=== PATIENT | male | born 1990 ===

== ENCOUNTER 2016-12-02 07:50 | Day surgery (SDC) | payer SELFPAY ==
[2016-11-27 09:00] VITALS: BMI 25.0
[2016-12-02] MEDS ORDERED: Lactated Ringer's 1,000 ML IV ONE (08:45)
[2016-12-02] MEDS ORDERED: Propofol 10 mg/ml Inj (20 ML) ONE (09:32)
[2016-12-02] MEDS ORDERED: Midazolam 2 MG/2 ML VIAL ONE (09:32)
[2016-12-02] MEDS ORDERED: Bupivacaine 0.5% Inj(30mL) ONE (11:06)
[2016-12-02] MEDS ORDERED: Lidocaine 1% Inj (20ml) ONE (11:06)
[2016-12-02] MEDS ORDERED: HYDROmorphone 0.5 mg/0.5 ml ISec IVP PRN (12:37)
[2016-12-02] MEDS ORDERED: Oxycodone/Acetaminophen 5/325 mg Tab PO PRN (12:56)
--- NOTE | 2016-12-02 12:59 | PCM.SURG1 ---
Surgeon's Initial Post Op Note - Surgeon's Notes Surgeon: Dr. Nava Torres Material Scheduler: Zenaida Nunez PA-C Type of Anesthesia: General Endo Anesthesia Administered By: Dr. Dent Pre-Operative Diagnosis: Left Knee Impingement,Lateral Discoid Meniscus, Synovitis,Maltracking of Patella Operative Findings: see operative note Post-Operative Diagnosis: same Operation Performed: Left Knee Arthroscopy,Medial Synovectomy of Patellofemoral and Lateral Compartments,Lateral Release,Partial Lateral Meniscectomy, Chondroplasty of Medial Femoral Condyle Specimen/Specimens Removed: none Estimated Blood Loss: EBL {In ML}: 1 Drains Used: No Drains Post-Op Condition: Good Date of Surgery/Procedure: 12/02/16 Time of Surgery/Procedure: 11:00
[2016-12-02] MEDS ORDERED: Ropivacaine 0.5% 30ML IV ONE (13:30)
[2016-12-02 14:35] VITALS: RESP 18
[2016-12-02] MEDS ORDERED: Oxycodone/Acetaminophen 5/325 mg Tab PO ONE (15:20)
--- NOTE | 2016-12-02 16:40 | OP ---
PROCEDURE DATE: 12/02/2016 DATE OF OPERATION: 12/02/2016 ATTENDING PHYSICIAN: Nava Torres MD CAPACITOR REPAIRER: Zenaida Nunez PA-C PREOPERATIVE DIAGNOSES: 1. Left knee lateral discoid meniscus. 2. Synovitis. 3. Maltracking of the patella. POSTOPERATIVE DIAGNOSES: 1. Left knee discoid meniscus. 2. Major synovitis of patellofemoral and lateral compartments. 3. 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 4. Lateral patellar tracking. PROCEDURES: 1. Left knee partial lateral meniscectomy. 2. Medial synovectomy of patellofemoral and lateral compartments. 3. Chondroplasty of medial femoral condyle. 4. Arthroscopic lateral release. ANESTHESIA TYPE: General. ESTIMATED BLOOD LOSS: 5 mL. SPECIMENS: None. DRAINS: ____ CLOSURE: Primary FLUIDS: See anesthesia sheet COMPLICATIONS: ____ INDICATIONS: After failing a course of non-operative therapy, the patient elected to undergo the abo ve procedure. In the office, the risks and possible complications of knee arthroscopy were discussed in detail with the patient. These risks include but are not limited to continued pain, lack of motio n, infection, vascular injury, DVT / PE, nerve injury including peroneal nerve dysfunction, reflex sy mpathetic dystrophy, compartment syndrome, unforeseen medical and/or anesthesia complications, limb l oss, and even . The patient expressed an understanding of the risks and possible benefits of th e procedure, and is also aware of the alternatives to surgery. An informed consent was obtained, and was checked immediately pre-op. PROCEDURE: The patient was correctly identified in the holding area and the left knee was marked with the [facility] initials. The patient was transported to the operating room and placed in the supine position, ge neral anesthesia was obtained, a pre-operative orthopaedic exam revealed effusion none, range of salvatore on 0-125, stable to varus and valgus stress. The lower extremity was prepped and draped in the standard fashion, and the thigh was placed in an ar throscopic leg srinivasan. A well-padded tourniquet was applied to the patient's thigh. Time out was co mpleted confirming the correct operative site. Esmarch was used to exsanguinate the leg and tournique t was inflated to 300 mmhg. A standard anterolateral viewing portals were made with a #11 blade after sub-dermal 1% Lidocaine with Epinephrine injection. The knee was distended with normal saline and epinephrine in a 1:1,000,000 mixture, at an initial pre ssure of 35mmHg. The arthroscope was inserted from the anterolateral portal and moved into the media l compartment. Next, the anteromedial working portal was made with spinal needle localization. The arthroscopic probe was inserted, and all compartments of the knee were sequentially visualized. FINDINGS: Arthroscopic examination of the knee revealed: 1. Discoid lateral meniscus. 2. Major synovitis of patellofemoral and lateral compartments. 3. Lateral maltracking of the patella. 4. 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 The anterior cruciate ligament and posterior cruciate ligament were intact. Partial lateral meniscectomy was performed with a combination of hand instruments and a 4.0 mm motori zed shaver. The meniscus was debrided to a smooth, stable border with an excursion of less than 5 mm. The motorized shaver was used to mechanically debride the loose, fibrillated and fragmented chondral edges of the medial femoral condyle to a stable border. Extreme care was taken to not disrupt the ad jacent chondral surface. The edges of injured chondral area were probed to ensure stability after the shaver was withdrawn from the knee. The motorized shaver was used to perform a synovectomy of the lateral and patellofemoral compartments . The hypertrophic synovium was resected with minimal bleeding. No synovial incarceration was noted after synovectomy when the knee was put through a full passive range of motion. The anterior fat pad and anterolateral synovium were debulked utilizing a radiofrequency device, whic h was introduced through the anterior medial working portal. The arthroscope was switched to the ant erior medial working portal to view the anterolateral portal, and the radiofrequency device was used to perform the lateral release taking care to identify and protect the superior lateral geniculate ar jess. The inflow was shut off and the lateral release area was checked for hemostasis. Small bleede rs were coagulated with the radiofrequency device. WASHOUT: The medial and lateral gutters were checked for loose bodies. At this point, the knee was t hen copiously irrigated utilizing the irrigation solution. Arthroscopic washout was performed with f ree flowing outflow through the cannula with the arthroscope removed. A total of 10 mL of 0.25% Marcaine was then injected into the knee, with infusion into each portal as well for post-operative analgesia. CLOSURE: Portal closure was then accomplished utilizing sutures, and sterile dressing was applied consisting o f Xeroform, 4 x 4's, sterile gauze, and two ABDs with a 6 inch rob wrap. In addition, an "Ice-Man" a utomated portable cooling system pad was applied to the knee, over top of the sterile gauze and under neath the Rob-wrap. This modality is medically necessary to maximize postoperative analgesia and to decrease the use of narcotic analgesics in the postoperative period. The sponge and needle count was correct at the end of the case, and all instruments were inspected and free of defects. Anesthesia was reversed and the patient was transferred to the recovery room in stable condition, hav ing tolerated the procedure well. The attending surgeon was scrubbed and present throughout the crit ical portions of the case, including all of the intra-articular arthroscopic procedures. Post operatively, the patient will be weight bearing as tolerated and will utilize my standard post a rthroscopy rehab protocol. The patient will be started on straight leg raising and quadriceps settin g exercises in the recovery room and will progress to prone hangs as well as prone knee flexion exerc ises using an active assisted construct. During this procedure, I was assisted by Zenaida Nunez PA-C, who assisted in positioning the patient on the operating room table as well as transferring the patient from the operating room tabl e to the recovery room stretcher. In addition, Zenaida Nunez PA-C, assisted me during the a ctual operative procedure by positioning the patient's extremity to allow for easier arthroscopic acc ess to all areas of the joint. The presence of Zenaida Nunez PA-C, as my operative assistan t was medically necessary to ensure the utmost safety of the patient in the pre, intra-, and post-ope rative periods. Nava Torres MD cc: [id number] TT: 12/02/2016 16:39:31 francine
[2016-12-02 17:04] VITALS: BP 132/68; PULSE 86; TEMP 97.9; O2SAT 98
== END 2016-12-02 17:10 | disposition home or self-care (01) ==
LOC: H.OPSURG 07:50
PROVIDERS: ATTEND Orthopaedic Surgery
DX: M23.362 Other meniscus derangements, other lateral meniscus, left knee (principal); M65.862 Other synovitis and tenosynovitis, left lower leg

== ENCOUNTER 2017-02-16 10:59 | Emergency (ER) | payer OTHER ==
[2017-02-16 11:07] VITALS: BP 129/80; PULSE 67
[2017-02-16 11:08] VITALS: BMI 24.1
[2017-02-16 11:15] VITALS: RESP 20; TEMP 98; O2SAT 100
--- NOTE | 2017-02-16 12:53 | ED PDOC ---
Lower Extremity Pain/Injury Time Seen by Provider: 02/16/17 12:25 Chief Complaint (Nursing): Lower Extremity Problem/Injury Chief Complaint (Provider): right knee History Per: Patient History/Exam Limitations: no limitations Additional Complaint(s): 26yo M in Ed for eval of left knee pain-stats that today 1 hr [employer] got up from befd and twisted knee and now with pain to knee made worse with walking but able to walk. pt states he has arthoscopy 3 months ago from [facility] but has never f.u nor attempted to make an appt. - Knee Description Of Injury: Twisted Knee: 1 - knee pain - Risk Factors DVT Risk Factors: Pos: None Past Medical History Reviewed: Historical Data, Nursing Documentation, Vital Signs Vital Signs: Last Vital Signs Temp 98.0 F 02/16/17 11:14 Pulse 67 02/16/17 11:14 Resp 20 02/16/17 11:14 BP 129/80 02/16/17 11:14 Pulse Ox 100 02/16/17 11:14 - Medical History PMH: No Chronic Diseases - Family History Family History: States: No Known Family Hx - Home Medications Home Medications: Ambulatory Orders Medication Instructions Recorded Naproxen [Naprosyn] 500 mg PO Q6 PRN 12/02/16 oxyCODONE/Acetaminophen [Percocet 1 mg PO Q4 PRN 12/02/16 5/325 mg Tab] Ibuprofen [Motrin] 400 mg PO Q6 #30 tab 02/16/17 - Allergies Allergies/Adverse Reactions: Allergies Allergy/AdvReac Type Severity Reaction Status Date / Time No Known Allergies Allergy Verified 12/02/16 08:51 Review of Systems ROS Statement: Except As Marked, All Systems Reviewed And Found Negative Musculoskeletal: Positive for: Leg Pain Physical Exam - Reviewed Nursing Documentation Reviewed: Yes Vital Signs Reviewed: Yes - Physical Exam Appears: Positive for: Well, Non-toxic, No Acute Distress Head Exam: Positive for: ATRAUMATIC, NORMAL INSPECTION, NORMOCEPHALIC Skin: Positive for: Normal Color, Warm, DRY Cardiovascular/Chest: Positive for: Regular Rate, Rhythm Respiratory: Positive for: CNT, Normal Breath Sounds Extremity: Positive for: Normal ROM. Negative for: Tenderness, Pedal Edema, Calf Tenderness, Deformity, Swelling Neurologic/Psych: Positive for: Alert, Oriented - ECG O2 Sat by Pulse Oximetry: 100 Medical Decision Making Medical Decision Making: pt is [facility] i ED will get knee immobilizer and pain control will has appt with MD Melissa 12:30pm on 02/20/17 Disposition - Clinical Impression Clinical Impression: Knee injury - Patient ED Disposition Is Patient to be Admitted: No Counseled Patient/Family Regarding: Studies Performed, Diagnosis, Need For Followup, Rx Given - Disposition Referrals: Nava Torres MD [Staff Provider] - Disposition: Routine/Home Disposition Time: 12:54 Condition: STABLE Prescriptions: Ibuprofen [Motrin] 400 mg PO Q6 #30 tab Instructions: Knee Sprain (ED)
== END 2017-02-16 13:30 | disposition home or self-care (01) ==
LOC: H.ER 10:59
DX: S89.92XA Unspecified injury of left lower leg, initial encounter (principal); X50.9XXA Other and unspecified overexertion or strenuous movements or postures, initial encounter; Y92.003 Bedroom of unspecified non-institutional (private) residence as the place of occurrence of the external cause

== ENCOUNTER 2017-02-28 05:28 | Observation (INO) | payer SELFPAY ==
[2017-02-28 05:52] VITALS: BMI 21.5
[2017-02-28] MEDS ORDERED: Sodium Chloride 0.9% 1,000 ML IV STA (05:57)
[2017-02-28 06:05] VITALS: O2SAT 100
--- NOTE | 2017-02-28 06:13 | ED PDOC ---
HPI: Abdomen Time Seen by Provider: 02/28/17 05:30 Chief Complaint (Nursing): Abdominal Pain Chief Complaint (Provider): Abdominal pain History Per: Patient History/Exam Limitations: no limitations Onset/Duration Of Symptoms: Hrs Outside of [place] travel?: No Current Symptoms Are (Timing): Still Present Location Of Pain/Discomfort: RLQ Quality Of Discomfort: Sharp, "Pain" Additional History Per: Patient Additional Complaint(s): The patient is a 26yo male, presents to the ED for evaluation of sharp, non- radiating right lower quadrant pain since 0430 this morning. Pt reports the pain is constant with waves and is associated with 1x episode of vomiting. Pt reports some nausea but denies any fever or chills. Pt offers no additional medical complaints. PCP: None provided Past Medical History Reviewed: Historical Data, Nursing Documentation, Vital Signs Vital Signs: Last Vital Signs Temp 97.4 F L 02/28/17 05:56 Pulse 71 02/28/17 05:56 Resp 16 02/28/17 05:56 BP 146/100 H 02/28/17 05:56 Pulse Ox 100 02/28/17 06:53 - Medical History PMH: No Chronic Diseases - Surgical History Other surgeries: left knee arthroscopic surgery - Family History Family History: States: Unknown Family Hx - Home Medications Home Medications: Ambulatory Orders Medication Instructions Recorded Naproxen [Naprosyn] 500 mg PO Q6 PRN 12/02/16 oxyCODONE/Acetaminophen [Percocet 1 mg PO Q4 PRN 12/02/16 5/325 mg Tab] Ibuprofen [Motrin] 400 mg PO Q6 #30 tab 02/16/17 - Allergies Allergies/Adverse Reactions: Allergies Allergy/AdvReac Type Severity Reaction Status Date / Time No Known Allergies Allergy Verified 02/28/17 05:55 Review of Systems ROS Statement: Except As Marked, All Systems Reviewed And Found Negative Constitutional: Negative for: Fever, Chills Gastrointestinal: Positive for: Nausea, Vomiting, Abdominal Pain Physical Exam - Reviewed Nursing Documentation Reviewed: Yes Vital Signs Reviewed: Yes - Physical Exam Appears: Positive for: Well, Non-toxic, Uncomfortable Head Exam: Positive for: ATRAUMATIC, NORMAL INSPECTION, NORMOCEPHALIC Skin: Positive for: Normal Color, Warm, DRY Eye Exam: Positive for: EOMI, Normal appearance, PERRL Neck: Positive for: Normal, Supple Cardiovascular/Chest: Positive for: Regular Rate, Rhythm Respiratory: Positive for: Normal Breath Sounds. Negative for: Respiratory Distress Gastrointestinal/Abdominal: Positive for: Soft, Tenderness (right lower quadrant ). Negative for: Mass, Guarding, Rebound Back: Positive for: Normal Inspection Extremity: Positive for: Normal ROM. Negative for: Deformity, Swelling Neurologic/Psych: Positive for: Alert, Oriented - Laboratory Results Result Diagrams: 02/28/17 06:26 02/28/17 06:26 - ECG O2 Sat by Pulse Oximetry: 100 (RA) Pulse Ox Interpretation: Normal Medical Decision Making Medical Decision Making: Time: Impression: Right lower quadrant pain Differential: Urethral stone with colic, appendicitis and other pathologies considered Plan: * CMP * CBC * IV Fluids * CT AP w/ IV Contrast * Morphine 4 mg IV * Zofran 4 mg IV * Toradol 30 mg IV * Time: 0700 Pt to be signed out to Dr. Fu pending CT, labs and final disposition. Scribe Attestation: Documented by Summer Moya acting as a scribe for Lyle Arriaga MD. Provider Attestation: All medical record entries made by the Scribe were at my direction and personally dictated by me. I have reviewed the chart and agree that the record accurately reflects my personal performance of the history, physical exam, medical decision making, and the department course for this patient. I have also personally directed, reviewed, and agree with the discharge instructions and disposition. Disposition - Clinical Impression Clinical Impression: Abdominal pain - Patient ED Disposition Is Patient to be Admitted: Transfer of Care Doctor Will See Patient In The: Office Counseled Patient/Family Regarding: Studies Performed, Diagnosis, Need For Followup - Disposition Disposition: Transfer of Care Disposition Time: 07:00 Condition: FAIR Patient Signed Over To: Dafne Fu Handoff Comments: Pending CT AP, labs and final dispo.
[2017-02-28 06:29] LABS: BASO % 0.2 % (0.0-2.0); EOS # 0.1 K/uL (0.0-0.7); EOS % 1.3 % (0.0-4.0); HEMATOCRIT 42.1 % (35.0-51.0); LYMPH # 1.9 K/uL (1.0-4.3); LYMPH % 34.5 % (20.0-40.0); MEAN CELL VOLUME 88.6 fl (80.0-94.0); MEAN CORPUSCULAR HEMOGLOBIN 29.3 pg (27.0-31.0); MEAN PLATELET VOLUME 9.8 fl (7.2-11.7); MONO # 0.5 K/uL (0.0-0.8); MONO % 8.5 % (0.0-10.0); NEUT % 55.5 % (50.0-75.0); NRBC % 0.1 % (0.0-0.0); RED CELL DISTRIBUTION WIDTH 14.1 % (11.5-14.5); WHITE BLOOD COUNT 5.4 K/uL (4.8-10.8)
[2017-02-28 06:39] LABS: ALB/GLOB RATIO 1.5 (1.0-2.1); ALKALINE PHOSPHATASE 66 U/L (38-126); ALT/SGPT 40 U/L (21-72); AST/SGOT 23 U/L (17-59); BILIRUBIN,TOTAL 0.4 mg/dl (0.2-1.3); BLOOD UREA NITROGEN 14 mg/dl (9-20); CALCIUM 9.3 mg/dL (8.4-10.2); CARBON DIOXIDE 26 mmol/L (22-30); CHLORIDE 104 mmol/L (98-107); GFR AFRICAN-AMERICAN > 60; GLUCOSE,RANDOM 105 mg/dL (75-110); POTASSIUM 3.8 MMOL/L (3.6-5.0); SODIUM 142 mmol/l (132-148); TOTAL PROTEIN 7.6 G/DL (6.3-8.2)
--- NOTE | 2017-02-28 07:05 | ED PDOC ---
- Laboratory Results Result Diagrams: 02/28/17 06:26 02/28/17 06:26 - ECG O2 Sat by Pulse Oximetry: 100 (RA) Pulse Ox Interpretation: Normal Medical Decision Making Medical Decision Makin signed over to me by Karrie Arriaga MD pending CT, labs, reassess. Disposition - Disposition Condition: STABLE ED OBSERVATION Date of observation admission: 02/28/17 Time of observation admission: 07:00 - Observation admission statement Patient is being placed in observation because:: need for additional imaging to rule out acute condition - Goals of Observation Goals of observation are:: determine disposition - Progress Note Progress Note: 0845 resting comfortably 02/28/17 10:43 stable for discharge. copy of CT given for outpatient follow up Additional Comments - Additional Comments Additional Comments: Scribe Attestation: Documented by Simeon Wilkinson acting as a scribe for Dafne Fu MD. Provider Attestation: All medical record entries made by the Scribe were at my direction and personally dictated by me. I have reviewed the chart and agree that the record accurately reflects my personal performance of the history, physical exam, medical decision making, and the department course for this patient. I have also personally directed, reviewed, and agree with the discharge instructions and disposition.
[2017-02-28] MEDS ORDERED: Sodium Chloride 0.9% 50 ML IV ONE (08:11)
[2017-02-28] MEDS ORDERED: Iohexol 300 100 ML IJ ONE (08:11)
--- NOTE | 2017-02-28 09:20 | CT ---
PROCEDURE: CT Abdomen and Pelvis with Oral contrast. CT abdomen and pelvis dated 02/28/2017 95 cc of Omnipaque 300 contrast material HISTORY: RLQ pain COMPARISON: None. TECHNIQUE: Contiguous axial images of the abdomen and pelvis performed following intravenous injection of approximately 95 cc of Omnipaque 300 contrast material. Additional two-view sagittal and coronal reformats provided. Radiation dose: Total exam DLP = 463.98 mGy-cm. This CT exam was performed using one or more of the following dose reduction techniques: Automated exposure control, adjustment of the mA and/or kV according to patient size, and/or use of iterative reconstruction technique. FINDINGS: LOWER THORAX: Mild passive atelectasis seen in the left lung base. . Small focal approximately 5 mm nodule the left posterolateral lung base some. Followup the CT scan the chest recommended to further characterize the lung parenchyma and exclude additional nodules. LIVER: Liver exhibits normal size measuring approximately 15.2 cm in CC dimension. Mild fatty hepatic infiltration. Three lung base hepatic mass collection or calcification. Portal and splenic veins are opacified. GALLBLADDER AND BILE DUCTS: Gallbladder is physiologically distended. No evidence of intraluminal gallbladder calculi. PANCREAS: Visualized portions of the pancreas appear grossly unremarkable. Size SPLEEN: Spleen exhibits normal size and attenuation without mass collection or calcification. ADRENALS: No adrenal lesions. KIDNEYS AND URETERS: Kidneys demonstrate symmetric nephrograms. There is tiny 2.4 mm heights medium calcification seen in the midpole right kidney. There is mild right-sided hydronephrosis with a small amount of perinephric fluid. There is a small amount of infiltration and possibly some fluid about the proximal right ureter is well. Tiny approximately 3.9 mm x 1.7 mm calcification seen in the right UVJ region possibly within the intramural portion of the right UVJ. No evidence of left-sided nephrolithiasis or hydronephrosis. Small rounded calcification seen adjacent the to the left posterolateral margin of the bladder however this is felt to represent a small calcified pelvic phlebolith. BLADDER: No definitive intraluminal bladder calculi however there does appear to be a small calcification probably either within the right UVJ or intramural portion of the right UVJ. REPRODUCTIVE: Prostate gland and seminal vesicles unremarkable. . APPENDIX: Normal-appearing appendix best seen on axial image number [id number]. No periappendiceal inflammatory changes. BOWEL: Evaluation of the bowel is limited due to the lack of oral contrast material. Stomach is incompletely distended which presumably accounts for thick-walled appearance. The visualized loops of small bowel exhibit normal contour and caliber. No evidence of acute mechanical small bowel obstruction. Moderately large amount of stool is present within cecum and ascending colon consistent with mild fecal retention/constipation. PERITONEUM: Unremarkable. No fluid collection. No free air. Small fat containing umbilical hernia. LYMPH NODES: Unremarkable. No enlarged lymph nodes. VASCULATURE: Unremarkable. No aortic aneurysm. BONES: No fracture or destructive lesion. OTHER FINDINGS: None. IMPRESSION: Tiny calculus in the distal right ureter at the UVJ or possibly within the intramural portion of the right UVJ. There is a small amount of on perinephric fluid and proximal periureteric fluid. The mild right-sided hydronephrosis. . There is also a tiny 2.4 mm calcification seen in the midpole right kidney Mild fatty hepatic infiltration. Findings consistent with constipation. Small approximately 5 mm nodule left lung base. Follow-up nonemergent CT scan chest recommended for further evaluation. Findings discussed with Dr. Fu at approximately 9:10 a.m. with written down and read back verification.
[2017-02-28 10:22] LABS: RBC URINE 59 /hpf (0-3); URINE BACTERIA RARE (<OCC); URINE BILIRUBIN NEGATIVE (NEGATIVE); URINE BLOOD MODERATE (NEGATIVE); URINE COLOR YELLOW (YELLOW); URINE GLUCOSE (UA) NEG (Normal); URINE KETONE NEGATIVE (NEGATIVE); URINE LEUKOCYTE ESTERASE NEG Leu/uL (Negative); URINE PROTEIN NEGATIVE (NEGATIVE); URINE UROBILINOGEN 0.2-1.0 mg/dL (0.2-1.0); WBC URINE 1 /hpf (0-5)
[2017-02-28 10:54] VITALS: BP 132/74; PULSE 85; RESP 19; TEMP 98.6
== END 2017-02-28 10:47 | disposition home or self-care (01) ==
LOC: H.ER 05:28 → H.EROBSV 09:58
PROVIDERS: ADMIT Emergency Medicine; ATTEND Emergency Medicine
DX: R10.31 Right lower quadrant pain (principal)

== ENCOUNTER 2017-03-07 13:26 | Observation (INO) | payer SELFPAY ==
[2017-03-07 13:26] VITALS: BMI 21.5
[2017-03-07] MEDS ORDERED: Sodium Chloride 0.9% 1,000 ML IV STA (14:34)
--- NOTE | 2017-03-07 14:37 | ED PDOC ---
HPI: Abdomen Time Seen by Provider: 03/07/17 14:16 Chief Complaint (Nursing): Abdominal Pain Chief Complaint (Provider): abdominal pain History Per: Patient History/Exam Limitations: no limitations Onset/Duration Of Symptoms: Days (x1 week) Current Symptoms Are (Timing): Still Present Additional Complaint(s): Rosi Chauhan is a 26 year old male with recent diagnosis of kidney stones, who presents to the emergency department with a complaint of right abdominal pain associated with one episode of vomiting yesterday ongoing since his diagnosis on 02/28/17 by his urologist, Laurie Ying MD. Denies fever, nausea , additional vomiting episodes, dysuria, or hematuria. PMD: none provided Past Medical History Reviewed: Historical Data, Nursing Documentation, Vital Signs Vital Signs: Last Vital Signs Temp 98.3 F 03/07/17 13:44 Pulse 62 03/07/17 13:44 Resp 16 03/07/17 13:44 BP 122/85 03/07/17 13:44 Pulse Ox 100 03/07/17 14:54 - Medical History PMH: Kidney Stones - Surgical History Other surgeries: Left knee surgery - Family History Family History: States: Unknown Family Hx - Social History Ex-Smoker (has not smoked in the last 12 months): Yes Alcohol: None Drugs: Denies - Home Medications Home Medications: Ambulatory Orders Medication Instructions Recorded Naproxen [Naprosyn] 500 mg PO Q6 PRN 12/02/16 oxyCODONE/Acetaminophen [Percocet 1 mg PO Q4 PRN 12/02/16 5/325 mg Tab] Ibuprofen [Motrin] 400 mg PO Q6 #30 tab 02/16/17 Naproxen [Naprosyn] 500 mg PO BID PRN #15 tablet 02/28/17 Tamsulosin [Flomax] 0.4 mg PO DAILY #14 cap 02/28/17 oxyCODONE/Acetaminophen [Percocet 1 tab PO Q6H PRN #15 tab 02/28/17 5/325 mg Tab] - Allergies Allergies/Adverse Reactions: Allergies Allergy/AdvReac Type Severity Reaction Status Date / Time No Known Allergies Allergy Verified 03/07/17 13:44 Review of Systems ROS Statement: Except As Marked, All Systems Reviewed And Found Negative Constitutional: Negative for: Fever Gastrointestinal: Positive for: Abdominal Pain (right side). Negative for: Nausea, Vomiting Genitourinary Male: Negative for: Dysuria, Hematuria Physical Exam - Reviewed Nursing Documentation Reviewed: Yes Vital Signs Reviewed: Yes - Physical Exam Appears: Positive for: In Acute Distress (mild, painful) Head Exam: Positive for: ATRAUMATIC, NORMAL INSPECTION, NORMOCEPHALIC Skin: Positive for: Normal Color, Warm, Dry Cardiovascular/Chest: Positive for: Regular Rate, Rhythm Respiratory: Positive for: Normal Breath Sounds. Negative for: Crackles, Rales , Rhonchi, Stridor Gastrointestinal/Abdominal: Positive for: Bowel Sounds, Soft, Tenderness (right , laterally). Negative for: Normal Exam, Mass Back: Positive for: Normal Inspection. Negative for: L CVA Tenderness, R CVA Tenderness Neurologic/Psych: Positive for: Alert, Oriented - ECG O2 Sat by Pulse Oximetry: 100 (RA) Pulse Ox Interpretation: Normal Medical Decision Making Medical Decision Making: Initial Impression: Abdominal pain Initial Plan: * CT Abdomen/ Pelvis without PO or IV contrast * Labs * NPO diet * Urine dipstick * PTT * PT * Morphine 2mg IV * NS 1,000 ml IV per 1,000 mls/hr * Urinalysis Time: 14:33 Urology consult: spoke with Laurie Ying MD. Recommends imaging studies, pain medication, NPO diet and to keep him informed. Scribe Attestation: Documented by Rosario Contreras, acting as a scribe for Dafne Fu MD. Provider Scribe Attestation: All medical record entries made by the Scribe were at my direction and personally dictated by me. I have reviewed the chart and agree that the record accurately reflects my personal performance of the history, physical exam, medical decision making, and the department course for this patient. I have also personally directed, reviewed, and agree with the discharge instructions and disposition.
[2017-03-07 15:42] LABS: BASO % 0.2 % (0.0-2.0); EOS # 0.1 K/uL (0.0-0.7); EOS % 1.4 % (0.0-4.0); HEMATOCRIT 40.4 % (35.0-51.0); LYMPH # 1.6 K/uL (1.0-4.3); LYMPH % 17.2 % (20.0-40.0); MEAN CELL VOLUME 88.5 fl (80.0-94.0); MEAN CORPUSCULAR HEMOGLOBIN 29.2 pg (27.0-31.0); MEAN CORPUSCULAR HGB CONC 32.9 g/dL (33.0-37.0); MEAN PLATELET VOLUME 9.9 fl (7.2-11.7); MONO # 0.8 K/uL (0.0-0.8); MONO % 8.5 % (0.0-10.0); NEUT # 6.7 K/uL (1.8-7.0); NEUT % 72.7 % (50.0-75.0); RED CELL DISTRIBUTION WIDTH 14.1 % (11.5-14.5); WHITE BLOOD COUNT 9.3 K/uL (4.8-10.8)
[2017-03-07 16:07] LABS: PARTIAL THROMBOPLASTIN TIME 31.6 Seconds (25.6-37.1)
--- NOTE | 2017-03-07 16:19 | ED PDOC ---
- Laboratory Results Result Diagrams: 03/07/17 14:45 03/07/17 14:45 - ECG O2 Sat by Pulse Oximetry: 100 (RA) Pulse Ox Interpretation: Normal Medical Decision Making Medical Decision Making: Time: 15:00 Patient was transferred to me from Dafne Fu MD. Pending on CT ABD/Pelvis and dispositon. Scribe Attestation: Documented by Rosario Contreras, acting as a scribe for Ricky Bond MD. Provider Scribe Attestation: All medical record entries made by the Scribe were at my direction and personally dictated by me. I have reviewed the chart and agree that the record accurately reflects my personal performance of the history, physical exam, medical decision making, and the department course for this patient. I have also personally directed, reviewed, and agree with the discharge instructions and disposition. Disposition - Clinical Impression Clinical Impression: Urinary tract obstruction by kidney stone - POA Present On Arrival: None - Disposition Disposition: Hospitalized as Observation Patient Disposition Time: 17:11 Condition: FAIR
[2017-03-07 16:27] LABS: ALB/GLOB RATIO 1.5 (1.0-2.1); ALKALINE PHOSPHATASE 60 U/L (38-126); ALT/SGPT 44 U/L (21-72); AST/SGOT 25 U/L (17-59); BILIRUBIN,TOTAL 0.5 mg/dl (0.2-1.3); BLOOD UREA NITROGEN 10 mg/dl (9-20); CALCIUM 9.6 mg/dL (8.4-10.2); CARBON DIOXIDE 27 mmol/L (22-30); CHLORIDE 103 mmol/L (98-107); GFR AFRICAN-AMERICAN > 60; GLUCOSE,RANDOM 87 mg/dL (75-110); SODIUM 140 mmol/l (132-148); TOTAL PROTEIN 7.3 G/DL (6.3-8.2)
[2017-03-07 17:07] LABS: RBC URINE 1 /hpf (0-3); URINE BILIRUBIN NEGATIVE (NEGATIVE); URINE BLOOD SMALL (NEGATIVE); URINE COLOR COLORLESS (YELLOW); URINE GLUCOSE (UA) NEG (Normal); URINE KETONE NEGATIVE (NEGATIVE); URINE LEUKOCYTE ESTERASE NEG Leu/uL (Negative); URINE PROTEIN NEGATIVE (NEGATIVE); URINE UROBILINOGEN 0.2-1.0 mg/dL (0.2-1.0)
--- NOTE | 2017-03-07 17:08 | CT ---
PROCEDURE: CT abdomen and pelvis dated 03/07/2017. HISTORY: R ureteral calculus COMPARISON: Comparison made with prior CT scan abdomen pelvis 02/28/2017 TECHNIQUE: Contiguous axial images of the abdomen and pelvis. Oral contrast was administered. No IV contrast given. Coronal and Sagittal reformats generated. Radiation dose: Total exam DLP = 601.42 mGy-cm. This CT exam was performed using one or more of the following dose reduction techniques: Automated exposure control, adjustment of the mA and/or kV according to patient size, and/or use of iterative reconstruction technique. FINDINGS: LOWER THORAX: 5 mm nodule left lung base unchanged. . Followup nonemergent CT scan of the chest recommended to assess for additional nodules and serve as baseline for comparison purposes. . . Mild bibasilar atelectasis. LIVER: Mild fatty hepatic infiltration again noted. GALLBLADDER AND BILE DUCTS: Unremarkable. PANCREAS: Unremarkable. No mass. No ductal dilatation. SPLEEN: Unremarkable. No splenomegaly. ADRENALS: Unremarkable. KIDNEYS AND URETERS: There is a small approximately 2.4mm elliptical shaped calcification in the right renal collecting system. Moderate right-sided hydronephrosis secondary to a right UVJ calculus measuring approximately 3.9 mm. This may be within the intramural portion of the right UVJ. BLADDER: Urinary bladder is incompletely distended which may in part account for thick-walled appearance. Muscular hypertrophy may contribute however cystitis not excluded. REPRODUCTIVE: Unremarkable as visualized APPENDIX: Unremarkable. BOWEL: Unremarkable. No obstruction. No gross mural thickening. PERITONEUM: Unremarkable. No fluid collection. No free air. LYMPH NODES: Unremarkable. No enlarged lymph nodes. VASCULATURE: Unremarkable. No aortic aneurysm. BONES: No fracture or destructive lesion. OTHER FINDINGS: None. IMPRESSION: Right-sided nephrolithiasis. Moderate right-sided hydronephrosis due to a small approximately 3.9 mm calculus probably within right UVJ likely within the intramural portion. There is wall thickening of the urinary bladder likely due to incomplete distention however muscular hypertrophy may contribute. Possibility of cystitis not excluded. Fatty hepatic infiltration. 5 mm nodule left lung base again noted. Followup nonemergent CT scan of the chest suggested to assess for additional nodules and serve as baseline for comparison. See above discussion for additional findings and details.
[2017-03-07] MEDS ORDERED: Lactated Ringer's 1,000 ML IV ONE ×2 (18:45→19:38)
[2017-03-07] MEDS ORDERED: cefTRIAXone (Rocephin) 1 gm Inj IM ONE ×2 (18:50→18:55)
[2017-03-07] MEDS ORDERED: Liquid Adhesive TOP ONE (19:48)
--- NOTE | 2017-03-07 20:11 | OP ---
PROCEDURE DATE: 03/07/2017 PREOPERATIVE DIAGNOSIS: Acute right renal colic secondary to right obstructing calculus. POSTOPERATIVE DIAGNOSIS: Acute right renal colic secondary to right obstructing calculus. PROCEDURE PERFORMED: Cystoscopy, right ureteroscopy, stone basketing and J stent placement. DESCRIPTION OF PROCEDURE: The patient was placed on the operating table in dorsal lithotomy position . The area of the groin was draped and prepped in a sterile manner. He was given general anesthesia . Using a ureteroscope, entered into the bladder atraumatically, identified the right ureteral orifi ce, engaged the orifice. Over the floppy tip guidewire, I advanced the ureteroscope beyond the area of the stone and then deployed a double helical basket and removed the stone. Once this was done, I did a second pass look. There was a small blood clot within the ureter at this time. There were no other stones seen. I left a 6-Azeri multilength double-J stent. The patient then was taken from [facility] operating room in good condition. String was left on the stent. Laurie Ying MD cc: 48 TT: 03/07/2017 20:10:29 francine
[2017-03-07] MEDS ORDERED: HYDROmorphone 0.5 mg/0.5 ml ISec IVP PRN (20:25)
[2017-03-07] MEDS ORDERED: Lactated Ringer's 1,000 ML IV SCH (20:25)
[2017-03-07] MEDS ORDERED: Oxycodone/Acetaminophen 5/325 mg Tab PO PRN (21:45)
[2017-03-07 23:43] VITALS: O2SAT 100
[2017-03-08 00:54] VITALS: BP 113/71; PULSE 59; RESP 19; TEMP 98.4
--- NOTE | 2017-03-09 14:20 | RAD ---
PROCEDURE: Intraoperative Fluoroscopy. . HISTORY: Obstructive renal calculus FINDINGS: Fluoroscopic assistance was provided. Please refer to the operative report for additional details.
== END 2017-03-08 02:25 | disposition home or self-care (01) ==
LOC: H.ER 13:26 → H.ERHOLD 17:08 → H.MEDSURG1 22:14
PROVIDERS: ADMIT Urology; ATTEND Urology
DX: N20.1 Calculus of ureter (principal); N23 Unspecified renal colic; Z87.442 Personal history of urinary calculi; Z87.891 Personal history of nicotine dependence

== ENCOUNTER 2017-06-09 06:23 | Day surgery (SDC) | payer SELFPAY ==
[2017-06-05 12:04] VITALS: BMI 23.3
[2017-06-09] MEDS ORDERED: ePHEDrine 50 mg/ml Inj ONE (07:10)
[2017-06-09] MEDS ORDERED: Propofol 10 mg/ml Inj (20 ML) ONE (07:10)
[2017-06-09] MEDS ORDERED: Rocuronium 10 mg/ml (5 ml) ONE (07:10)
[2017-06-09] MEDS ORDERED: Lidocaine 2% MPF (5 ml) Inj ONE (07:10)
[2017-06-09] MEDS ORDERED: Succinylcholine 200 mg/10 ml Inj IV ONE (07:10)
[2017-06-09] MEDS ORDERED: Phenylephrine 10 mg/ml Inj ONE (07:10)
[2017-06-09] MEDS ORDERED: Bacitracin Ointment 30 GM TUBE ONE (07:35)
[2017-06-09] MEDS ORDERED: Bupivacaine 0.25%-Epinephrine 1:200,000 (30 ml) Inj ONE (07:36)
[2017-06-09] MEDS ORDERED: Lactated Ringer's 1,000 ML IV ONE ×2 (07:45→08:25)
[2017-06-09] MEDS ORDERED: Midazolam 2 MG/2 ML VIAL ONE (07:49)
[2017-06-09] MEDS ORDERED: MethylPREDNISolone Depo 40 mg/ml Inj ONE (08:45)
[2017-06-09] MEDS ORDERED: Bupivacaine 0.5% Inj(30mL) ONE (08:45)
--- NOTE | 2017-06-09 08:56 | PCM.SURG1 ---
Surgeon's Initial Post Op Note - Surgeon's Notes Surgeon: Nava Torres MD [employer] Equipment Operator: Emeterio Chowdhury PA-C Type of Anesthesia: General Endo Pre-Operative Diagnosis: Left knee meniscus tear Operative Findings: see op report Post-Operative Diagnosis: same as pre-op dx Operation Performed: Left knee arthroscopy, partial meniscectomy, synovectomy Specimen/Specimens Removed: none Estimated Blood Loss: EBL {In ML}: 5 Date of Surgery/Procedure: 06/09/17 Time of Surgery/Procedure: 08:00
[2017-06-09] MEDS ORDERED: Oxycodone/Acetaminophen 5/325 mg Tab PO PRN (08:58)
[2017-06-09] MEDS ORDERED: HYDROmorphone 0.5 mg/0.5 ml ISec IVP PRN (08:59)
[2017-06-09 09:16] VITALS: RESP 18
[2017-06-09] MEDS ORDERED: Oxycodone/Acetaminophen 5/325 mg Tab PO ONE (11:15)
[2017-06-09 13:09] VITALS: BP 126/74; PULSE 71; TEMP 97.4; O2SAT 99
--- NOTE | 2017-06-09 16:54 | OP ---
DATE OF PROCEDURE: 06/09/2017 REGISTERED MASSAGE THERAPIST: Emeterio Chowdhury PA-C. PREOPERATIVE DIAGNOSES: 1. Left knee lateral meniscal tear. 2. Synovitis. 3. Anterior patellofemoral adhesions. POSTOPERATIVE DIAGNOSES: 1. Major synovitis of medial and lateral compartments. 2. Tear of the body of lateral meniscus. 3. Anterior patellofemoral adhesions. 4. 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 PROCEDURES PERFORMED: 1. Left knee arthroscopy, partial lateral meniscectomy. 2. Chondroplasty of the lateral femoral condyle and patellofemoral joint. 3. Major synovectomy of mediolateral compartment. 4. Anterior lysis of adhesions. 5. Reduction of enlarged joint. EBL: 5 mL. SPECIMENS: None. CLOSURE: Primary. FLUIDS: See Anesthesia sheet. COMPLICATIONS: None. INDICATIONS: After failing a course of nonoperative therapy, the patient elected to undergo the above procedure. In the office, the risks and possible complications of knee arthroscopy were discussed in detail with the patient. These risks include but are not limited to continued pain, lack of motion, infection, vascular injury, DVT / PE, nerve injury including peroneal nerve dysfunction, reflex sympathetic dystrophy, compartment syndrome, unforeseen medical and/or anesthesia complications, limb loss, and even . The patient expressed an understanding of the risks and possible benefits of the procedure, and is also aware of the alternatives to surgery. An informed consent was obtained, and was checked immediately preop. DESCRIPTION OF PROCEDURE: The patient was correctly identified in the holding area and the left knee was marked with the surgeon's initials. The patient was transported to the operating room and placed in the supine position, general anesthesia was obtained. A preoperative orthopedic exam revealed effusion of none, range of motion is 0 to 125, stable to varus and valgus stress. The lower extremity was prepped and draped in the standard fashion, and the thigh was placed in an arthroscopic leg srinivasan. A well-padded tourniquet was applied to the patient's thigh. Time-out was completed confirming the correct operative site. Esmarch was used to exsanguinate the leg and tourniquet was inflated to 300 mmHg. A standard anterolateral viewing portals were made with a #11 blade after subdermal 1% lidocaine with epinephrine injection. The knee was distended with normal saline and epinephrine in a 1:1,000,000 mixture, at an initial pressure of 35 mmHg. The arthroscope was inserted from the anterolateral portal and moved into the medial compartment. Next, the anteromedial working portal was made with spinal needle localization. The arthroscopic probe was inserted, and all compartments of the knee were sequentially visualized. FINDINGS: Arthroscopic examination revealed; 1. Major synovitis of medial and lateral compartment. 2. Tear of the body of the lateral meniscus. 3. Anterior patellofemoral adhesion. 4. Grade 2 chondromalacia of lateral femoral condyle and patella. ACL and PCL were intact. Partial lateral meniscectomy was performed with a combination of hand instruments and a 4.0-mm motorized shaver. The meniscus was debrided to a smooth, stable border with an excursion of less than 5 mm. The motorized shaver was used to perform a synovectomy of the medial and lateral compartments. The hypertrophic synovium was resected with minimal bleeding. No synovial incarceration was noted after synovectomy when the knee was put through a full passive range of motion. The motorized shaver was used to mechanically debride the loose, fibrillated, and fragmented chondral edges of the lateral femoral condyle of the patella to a stable border. Extreme care was taken to not disrupt the adjacent chondral surface. The edges of injured chondral area were probed to ensure stability after the shaver was withdrawn from the knee. Due to injuries to the patellofemoral region resulting in organized scar and suprapatellar adhesions, a decision was made to perform and anterior interval release to decrease the patellofemoral joint reaction force and relieve pressures over the patella and trochlea. The synovectomy was carried over to the suprapatellar pouch and an anterior interval release was performed over the anterior compartment and the suprapatellar pouch with the motorized shaver. The anterior fat pad was released and debulked during this procedure. The inflow was shut off and the area checked for hemostasis. Small bleeders were coagulated with the radiofrequency device. Finally, 1 mL of 40 mg Depo-Medrol mixed with 9 mL of 0.25% Marcaine was injected within the knee joint. Postoperatively, the patient will be weight bearing as tolerated and will utilize my standard post arthroscopy rehab protocol. The patient will be started on straight leg raising and quadriceps setting exercises in the recovery room and will progress to prone hangs as well as prone knee flexion exercises using an active assisted construct. During this procedure, I was assisted by Emeterio Chowdhury PA-C, who assisted in positioning the patient on the operating room table as well as transferring the patient from the operating room table to the recovery room stretcher. In addition, Emeterio Chowdhury PA-C, assisted me during the actual operative procedure by positioning the patient's extremity to allow for easier arthroscopic access to all areas of the joint. The presence of Emeterio Chowdhury PA-C, as my operative parking assistant, was medically necessary to ensure the utmost safety of the patient in the pre, intra-, and postoperative periods. Nava Torres MD
== END 2017-06-09 13:30 | disposition home or self-care (01) ==
LOC: H.OPSURG 06:23
PROVIDERS: ATTEND Orthopaedic Surgery
DX: M65.862 Other synovitis and tenosynovitis, left lower leg (principal); M23.322 Other meniscus derangements, posterior horn of medial meniscus, left knee; M94.262 Chondromalacia, left knee; M23.242 Derangement of anterior horn of lateral meniscus due to old tear or injury, left knee
CPT/HCPCS: 29876; 29880; J0171; J0330; J0690; J1030; J2175; J2250; J2370; J2405; J2704; J3010; J7030; J7120

== ENCOUNTER 2017-11-25 13:46 | Emergency (ER) | payer SELFPAY ==
[2017-11-25 13:46] VITALS: BMI 23.3
[2017-11-25 14:02] VITALS: BP 120/79; PULSE 70; RESP 16; TEMP 98; O2SAT 99
--- NOTE | 2017-11-25 14:58 | RAD ---
PROCEDURE: Radiographs of the left elbow. HISTORY: Status postfall COMPARISON: No prior. FINDINGS: BONES: Normal. No fracture. JOINTS: Normal. No osteoarthritis. SOFT TISSUES: Normal. JOINT EFFUSION: None. OTHER FINDINGS: None IMPRESSION: Unremarkable radiographs of the left elbow.
--- NOTE | 2017-11-25 15:53 | ED PDOC ---
Upper Extremity Pain/Injury Time Seen by Provider: 11/25/17 14:36 Chief Complaint (Nursing): Upper Extremity Problem/Injury Chief Complaint (Provider): Elbow pain History Per: Patient History/Exam Limitations: no limitations Onset/Duration Of Symptoms: Hrs Current Symptoms Are (Timing): Still Present Additional Complaint(s): Patient is a 26 y/o male presenting for evaluation of left elbow injury sustained today around 1 PM. States he slipped on ice and fell, injuring the elbow. No head trauma or LOC. Now complaining of pain and swelling to the left elbow. No prior injuries to the area. Patient has not taken any medications for pain prior to arrival. Otherwise: (-) numbness, (-) focal weakness, (-) tingling. PMD: None Past Medical History Reviewed: Historical Data, Nursing Documentation, Vital Signs Vital Signs: Last Vital Signs Temp 98.0 F 11/25/17 13:59 Pulse 70 11/25/17 13:59 Resp 16 11/25/17 13:59 BP 120/79 11/25/17 13:59 Pulse Ox 99 11/25/17 13:59 - Medical History PMH: Kidney Stones (RIGHT), Chronic Kidney Disease - Surgical History Other surgeries: Right arthroscopy - Family History Family History: States: Unknown Family Hx - Social History Current smoker - smoking cessation education provided: No Alcohol: Social Drugs: Denies - Home Medications Home Medications: Ambulatory Orders Medication Instructions Recorded Aspirin 325 mg PO DAILY 06/09/17 Ibuprofen [Motrin] 600 mg PO PRN PRN 06/09/17 Naproxen Sodium [Aleve] 220 mg PO PRN PRN 06/09/17 Ondansetron HCl [Zofran] 4 mg PO Q4 PRN 06/09/17 oxyCODONE/Acetaminophen [Percocet 1 tab PO Q4 PRN 06/09/17 5/325 mg Tab] Ibuprofen [Motrin Tab] 600 mg PO Q6 #20 tab 11/25/17 - Allergies Allergies/Adverse Reactions: Allergies Allergy/AdvReac Type Severity Reaction Status Date / Time No Known Allergies Allergy Verified 11/25/17 13:59 Review of Systems ROS Statement: Except As Marked, All Systems Reviewed And Found Negative Musculoskeletal: Positive for: Other (left elbow pain, + swelling) Neurological: Negative for: Weakness, Numbness (and tingling) Physical Exam - Reviewed Nursing Documentation Reviewed: Yes Vital Signs Reviewed: Yes - Physical Exam Comments: GENERAL APPEARANCE: Patient is awake, alert, oriented x 3, in no acute distress. SKIN: Warm, dry; (-) cyanosis. CHEST AND RESPIRATORY: (-) rales, (-) rhonchi, (-) wheezes; breath sounds equal bilaterally. HEART AND CARDIOVASCULAR: (-) irregularity; (-) murmur, (-) gallop. UPPER EXTREMITY: (+) Tenderness to the lateral aspect of left elbow, (-) effusion, (-) erythema, (-) ecchymosis. (-) deformity. Full ROM with pain on flexion. (-) distal neurovascular deficits. Wrist, hand and digits: (-) tenderness. CARDIOVASCULAR: (+) distal pulse. NEUROLOGIC: (+) distal sensation. - ECG O2 Sat by Pulse Oximetry: 99 (RA) Pulse Ox Interpretation: Normal Medical Decision Making Medical Decision Making: Initial Impression: Left elbow injury Time: 14:37 Initial Plan: * X-ray of left elbow * Motrin 600 mg PO Time: 14:56 X-Ray of left elbow, as reviewed by radiology: FINDINGS: BONES: Normal. No fracture. JOINTS: Normal. No osteoarthritis. SOFT TISSUES: Normal. JOINT EFFUSION: None. OTHER FINDINGS: None IMPRESSION: Unremarkable radiographs of the left elbow. 1500 On re-exam, patient remains AAOx3, in no acute distress. On exam, neck is supple , lungs CTA, cardiac RRR, neuro exam shows no focal findings. Improved pain reported to elbow. Limb remains NV intact. Discussed x-ray findings in detail with patient. Dx of contusion d/w patient in detail. Based on history, exam and diagnostic results plan will be for outpatient follow up. Referral for orthopedist provided. Patient discharged home with rx for Motrin. Advised to follow up with primary care physician or orthopedist as needed. Advised to take medication as prescribed. Return to the emergency room at any time for any new or worsening symptoms. Patient states he fully agrees with and understands discharge instructions. States that he agrees with the plan and disposition. Verbalized and repeated discharge instructions and plan. I have given the patient opportunity to ask any additional questions. Scribe Attestation: Documented by Tg Zhong, acting as a scribe for Danna Armstrong PA-C Provider Scribe Attestation: All medical record entries made by the Scribe were at my direction and personally dictated by me. I have reviewed the chart and agree that the record accurately reflects my personal performance of the history, physical exam, medical decision making, and the department course for this patient. I have also personally directed, reviewed, and agree with the discharge instructions and disposition. Disposition - Clinical Impression Clinical Impression: Left elbow contusion, Elbow pain, left - Patient ED Disposition Is Patient to be Admitted: No Counseled Patient/Family Regarding: Studies Performed, Diagnosis, Need For Followup, Rx Given - Disposition Referrals: Manjinder Vides III, MD [Staff Provider] - Disposition: Routine/Home Disposition Time: 16:02 Condition: STABLE Prescriptions: Ibuprofen [Motrin Tab] 600 mg PO Q6 #20 tab Instructions: Contusion (DC), Active Range of Motion Exercises, Arms and Hands Forms: [employer] (Danish) Print Language: PORTUGUESE - POA Present On Arrival: Falls Or Trauma
== END 2017-11-25 16:27 | disposition home or self-care (01) ==
LOC: H.ER 13:46
DX: S50.02XA Contusion of left elbow, initial encounter (principal); W19.XXXA Unspecified fall, initial encounter; Y92.89 Other specified places as the place of occurrence of the external cause; N18.9 Chronic kidney disease, unspecified; Z79.82 Long term (current) use of aspirin

== ENCOUNTER 2017-12-24 20:53 | Emergency (ER) | payer SELFPAY ==
[2017-12-24 20:53] VITALS: BMI 23.3
[2017-12-24 21:25] VITALS: RESP 18; TEMP 98.6; O2SAT 100
[2017-12-24] MEDS ORDERED: Naproxen 500 MG TAB PO STA (22:01)
[2017-12-24] MEDS ORDERED: Naproxen 500 MG TAB PO ONE (22:06)
--- NOTE | 2017-12-24 22:40 | ED PDOC ---
HPI: Back Time Seen by Provider: 12/24/17 21:39 Chief Complaint (Nursing): Back Pain History Per: Patient History/Exam Limitations: no limitations Onset/Duration Of Symptoms: Days (2) Additional Complaint(s): Patient reports 2 day h/o nonradiating pain in the mid and upper back, beginning yesterday after seeking treatment with a chiropractor for his foot pain. Reports that he had an XR done of his entire spine, which was normal, then after he was manipulated by the chiropractor developed pain that is constant and worse when walking. Otherwise: (-) CP, (-) SOB, (-) abdominal pain , (-) paresthesias, (-) weakness, (-) urinary symptoms, (-) acute bowel or bladder dysfunction, (-) fever. Has no history of prior back problem. Past Medical History Vital Signs: Last Vital Signs Temp 98.6 F 12/24/17 21:22 Pulse 70 12/24/17 21:22 Resp 18 12/24/17 21:22 BP 117/64 12/24/17 21:22 Pulse Ox 100 12/24/17 21:22 - Medical History PMH: Kidney Stones (RIGHT), Chronic Kidney Disease - Family History Family History: States: Unknown Family Hx - Home Medications Home Medications: Ambulatory Orders Medication Instructions Recorded Aspirin 325 mg PO DAILY 06/09/17 Ibuprofen [Motrin] 600 mg PO PRN PRN 06/09/17 Naproxen Sodium [Aleve] 220 mg PO PRN PRN 06/09/17 Ondansetron HCl [Zofran] 4 mg PO Q4 PRN 06/09/17 oxyCODONE/Acetaminophen [Percocet 1 tab PO Q4 PRN 06/09/17 5/325 mg Tab] Ibuprofen [Motrin Tab] 600 mg PO Q6 #20 tab 11/25/17 Cyclobenzaprine [Cyclobenzaprine 10 mg PO TID PRN #15 tab 12/24/17 HCl] Naproxen 500 mg PO BID PRN #20 tablet 12/24/17 - Allergies Allergies/Adverse Reactions: Allergies Allergy/AdvReac Type Severity Reaction Status Date / Time No Known Allergies Allergy Verified 11/25/17 13:59 Review of Systems Constitutional: Negative for: Fever, Chills, Malaise Respiratory: Negative for: Cough, Shortness of Breath, Wheezing Gastrointestinal: Negative for: Nausea, Vomiting, Abdominal Pain, Diarrhea Genitourinary Male: Negative for: Dysuria, Frequency, Hematuria Musculoskeletal: Positive for: Back Pain, Foot Pain. Negative for: Neck Pain Skin: Negative for: Rash, Lesions, Jaundice Neurological: Negative for: Weakness, Numbness Physical Exam - Physical Exam Comments: GENERALIZED APPEARANCE: Patient is awake, alert, oriented x3 in no acute distress. Arrived to the ED ambulatory with a normal gait. SKIN: Warm, dry; (-) cyanosis. EYES: (-) conjunctival pallor. ENMT: Mucous membranes moist. NECK: (-) tenderness, (-) stiffness, (-) lymphadenopathy. CHEST AND RESPIRATORY: (-) rales, (-) rhonchi, (-) wheezes; breath sounds equal bilaterally. HEART AND CARDIOVASCULAR: (-) irregularity; (-) murmur, (-) gallop. ABDOMEN AND GI: Soft; (-) tenderness; (-) palpable mass. BACK: (-) paravertebral tenderness, (-) spasm, (+) minimal direct bony tenderness to the T spine, (-) deformity. EXTREMITIES: (-) deformity. Distal pulses good bilaterally. NEURO AND PSYCH: Mental status as above. Intact sensation bilaterally; normal strength in extension of the knees, plantar and dorsiflexion of the toes. - ECG O2 Sat by Pulse Oximetry: 100 Medical Decision Making Medical Decision Making: XR T spine: no fracture, no acute abnormality, as read by PA. X-ray results discussed with the patient in great detail. On re-evaluation, patient reports improvement of symptoms, reports no other complaints at this time. On exam, patient remains AAOx3, in no acute distress. Repeat neuro exam shows no focal findings. Patient ambulatory on a steady gait. Diagnostic results d/w the patient in great detail. Diagnosis of back strain/ spams d/w the patient. Based on history, exam and diagnostic results, plan will be for outpatient follow up. Patient instructed to follow-up with pmd or the clinic in 1-2 days without fail. Advised to take medication as prescribed. Return to the emergency room at any time for any new or worsening symptoms. Patient states he fully agrees with and understands discharge instructions. States that he agrees with the plan and disposition. Verbalized and repeated discharge instructions and plan. I have given the patient opportunity to ask any additional questions. Disposition - Clinical Impression Clinical Impression: Acute back pain - Patient ED Disposition Is Patient to be Admitted: No Counseled Patient/Family Regarding: Studies Performed, Diagnosis, Need For Followup, Rx Given - Disposition Referrals: FAMILY PROVIDER,LISA [Family Provider] - [facility] [Outside] Disposition: Routine/Home Disposition Time: 22:45 Condition: STABLE Additional Instructions: Thank you for letting us take care of you today. You were treated for back pain. The emergency medical care you received today was directed at your acute symptoms. If you were prescribed any medication, please fill it and take as directed. It may take several days for your symptoms to resolve. Return to the Emergency Department if your symptoms worsen, do not improve, or if you have any other problems. Please contact your doctor in 2 days for re-evaluation and follow up / or call one of the physicians/clinics you have been referred to that are listed on the Patient Visit Information form that is included in your discharge packet. Bring any paperwork you were given at discharge with you along with any medications you are taking to your follow up visit. Our treatment cannot replace ongoing medical care by a primary care provider (PCP) outside of the emergency department. Thank you for allowing the [facility] team to be part of your care today. Prescriptions: Cyclobenzaprine [Cyclobenzaprine HCl] 10 mg PO TID PRN #15 tab PRN Reason: Muscle Spasm Naproxen 500 mg PO BID PRN #20 tablet PRN Reason: Pain, Moderate (4-7) Instructions: Upper Back Pain (DC) Forms: [employer] (Slovak), [facility] ED School/Work Excuse
[2017-12-24 22:52] VITALS: BP 126/71; PULSE 69
--- NOTE | 2017-12-25 08:21 | RAD ---
HISTORY: pain COMPARISON: No prior. FINDINGS: BONES: Alignment maintained. No fracture. DISC SPACES: Normal. SOFT TISSUES: Normal. OTHER FINDINGS: None. IMPRESSION: Unremarkable radiographs of the thoracic spine. If symptoms persist or worsen follow-up MRI recommended.
== END 2017-12-24 22:35 | disposition home or self-care (01) ==
LOC: H.ER 20:53 → SUPCPDRO 20:53 → H.ER 22:35
DX: M54.9 Dorsalgia, unspecified (principal); Z79.82 Long term (current) use of aspirin; Z87.442 Personal history of urinary calculi

== ENCOUNTER 2018-03-09 12:06 | Emergency (ER) | payer OTHER, SELFPAY ==
[2018-03-09 12:11] VITALS: BP 119/83; PULSE 82; TEMP 98.1; O2SAT 100
[2018-03-09 12:12] VITALS: BMI 25.0
[2018-03-09 12:41] VITALS: RESP 18
--- NOTE | 2018-03-09 13:16 | ED PDOC ---
Lower Extremity Pain/Injury Time Seen by Provider: 03/09/18 12:27 Chief Complaint (Nursing): Lower Extremity Problem/Injury Chief Complaint (Provider): Right Ankle Pain History Per: Patient History/Exam Limitations: no limitations Onset/Duration Of Symptoms: Days (x2) Current Symptoms Are (Timing): Still Present Severity: None Pain Scale Rating Of: 3 Additional Complaint(s): 27 year old male presents to the emergency department complaining of right ankle pain. Patient states that yesterday he was coming down a ladder and twisted his ankle. He states that since then he has been feeling pain in the ankle. denies numbness, tingling , back pain. Patient does report history of back pain. - Ankle/Foot Description Of Injury: Twisted - Risk Factors DVT Risk Factors: Pos: None Past Medical History Reviewed: Historical Data, Nursing Documentation, Vital Signs Vital Signs: Last Vital Signs Temp 98.1 F 03/09/18 12:38 Pulse 82 03/09/18 12:38 Resp 18 03/09/18 12:38 BP 119/83 03/09/18 12:10 Pulse Ox 100 03/09/18 12:38 - Medical History PMH: Back Problems, Kidney Stones (RIGHT), Chronic Kidney Disease - Surgical History Surgical History: No Surg Hx - Family History Family History: States: No Known Family Hx - Living Arrangements Living Arrangements: With Family - Social History Current smoker - smoking cessation education provided: No Ex-Smoker (has not smoked in the last 12 months): No Alcohol: Social Drugs: Denies - Home Medications Home Medications: Ambulatory Orders Medication Instructions Recorded Aspirin 325 mg PO DAILY 06/09/17 Ibuprofen [Motrin] 600 mg PO PRN PRN 06/09/17 Naproxen Sodium [Aleve] 220 mg PO PRN PRN 06/09/17 Ondansetron HCl [Zofran] 4 mg PO Q4 PRN 06/09/17 oxyCODONE/Acetaminophen [Percocet 1 tab PO Q4 PRN 06/09/17 5/325 mg Tab] Ibuprofen [Motrin Tab] 600 mg PO Q6 #20 tab 11/25/17 Cyclobenzaprine [Cyclobenzaprine 10 mg PO TID PRN #15 tab 12/24/17 HCl] Naproxen 500 mg PO BID PRN #20 tablet 12/24/17 - Allergies Allergies/Adverse Reactions: Allergies Allergy/AdvReac Type Severity Reaction Status Date / Time No Known Allergies Allergy Verified 03/09/18 12:38 Review of Systems Musculoskeletal: Positive for: Other (right ankle pain). Negative for: Foot Pain Neurological: Negative for: Weakness, Numbness Physical Exam - Reviewed Nursing Documentation Reviewed: Yes Vital Signs Reviewed: Yes - Physical Exam Appears: Positive for: Non-toxic, No Acute Distress Skin: Positive for: Normal Color, Warm, Dry. Negative for: Rash Pulses-Dorsalis Pedis (L): 2+ Pulses-Dorsalis Pedis (R): 2+ Extremity: Positive for: Capillary Refill (less than 2 seconds), Other (no break in skin integrity). Negative for: Tenderness (no tenderness to right ankle), Deformity (no deformity to right ankle), Swelling (no swelling to right ankle) Neurologic/Psych: Positive for: Alert, Oriented, Gait - ECG O2 Sat by Pulse Oximetry: 100 (RA) Pulse Ox Interpretation: Normal - Radiology X-Ray: Interpreted by Me (R ankle x-ray) X-Ray Interpretation: No Acute Disease - Progress ED Course And Treament: Ankle immobilized in aircast splint by RN. Crutches offered but pt. refused as he has them at home. Medical Decision Making Medical Decision Makin Initial Impression 27 year old male presents to the emergency department with an injury to his right ankle Initial Plan: * RAD right ankle * Reevaluation Documented by Brittany Go acting as a scribe for Lito Rosales PA-C. All medical record entries made by the Scribe were at my direction and personally dictated by me. I have reviewed the chart and agree that the record accurately reflects my personal performance of the history, physical exam, medical decision making, and the department course for this patient. I have also personally directed, reviewed, and agree with the discharge instructions and disposition. Disposition - Clinical Impression Clinical Impression: Ankle injury - Patient ED Disposition Is Patient to be Admitted: No Counseled Patient/Family Regarding: Studies Performed - Disposition Referrals: Podiatry Clinic [Outside] Disposition: Routine/Home Disposition Time: 13:15 Condition: STABLE Additional Instructions: Follow up with podiatry clinic for further evaluation. Return to ED immediately if symptoms worsen. Instructions: Ankle Sprain (DC), How to Use Crutches Forms: [employer] (Hungarian) Print Language: IRISH
--- NOTE | 2018-03-11 12:27 | RAD ---
PROCEDURE: Right Ankle Radiographs. HISTORY: trauma COMPARISON: Comparison made with prior radiographs of the right ankle dated 08/13/2017. FINDINGS: BONES: Normal. No fracture. JOINTS: Normal. No osteoarthritis. Ankle mortise maintained. Talar dome intact SOFT TISSUES: There appears to be some very minimal soft tissue swelling over the lateral malleolus OTHER FINDINGS: None. IMPRESSION: No evidence of acute displaced fracture nor dislocation.
== END 2018-03-09 13:36 | disposition home or self-care (01) ==
LOC: H.ER 12:06
DX: S99.911A Unspecified injury of right ankle, initial encounter (principal); X50.9XXA Other and unspecified overexertion or strenuous movements or postures, initial encounter; Y92.89 Other specified places as the place of occurrence of the external cause; Z79.82 Long term (current) use of aspirin

== ENCOUNTER 2018-07-24 12:05 | Emergency (ER) | payer OTHER ==
[2018-07-24 12:05] VITALS: BMI 25.0
--- NOTE | 2018-07-24 14:11 | RAD ---
Date of service: 07/24/2018 PROCEDURE: Right Wrist Radiographs. HISTORY: fall onto flexed wrist 2 wks ago, now with pain COMPARISON: None. FINDINGS: BONES: Three views of the right wrist were performed for right wrist pain and trauma 2 weeks ago. No fracture is seen. No abnormal carpal bone widening is noted. Navicular bone appears intact. Distal radius and ulna are intact as well as the metacarpals. No lytic process is seen. No periosteal reaction or erosions are noted. JOINTS: Normal. No dislocation. SOFT TISSUES: Normal. OTHER FINDINGS: None. IMPRESSION: No fracture.
--- NOTE | 2018-07-24 14:13 | RAD ---
Date of service: 07/24/2018 PROCEDURE: Radiographs of the right elbow. HISTORY: Fall onto flexed R wrist w/ elbow pain COMPARISON: No prior. FINDINGS: BONES: Two views of the right elbow were performed for right elbow pain and prior trauma 2 weeks ago. No appreciable acute or healing fracture is noted. No dislocation of the right elbow is noted. Radial head is intact. No periosteal reaction is seen. JOINTS: Normal. No osteoarthritis. SOFT TISSUES: Normal. JOINT EFFUSION: No joint effusion is seen. OTHER FINDINGS: None. IMPRESSION: No appreciable fracture or dislocation of the right elbow.
--- NOTE | 2018-07-24 14:26 | ED PDOC ---
Upper Extremity Pain/Injury Time Seen by Provider: 07/24/18 12:26 Chief Complaint (Nursing): Finger,Hand,&Wrist Chief Complaint (Provider): right wrist pain History Per: Patient History/Exam Limitations: no limitations Onset/Duration Of Symptoms: Days (x2) Current Symptoms Are (Timing): Still Present Additional Complaint(s): Rosi Chauhan, a 27 year old male, presents to the ED complaining of right wrist pain. He states he fell onto a flexed right wrist x2 weeks ago and had pain with no swelling or bruising. He reports the pain went away, but it returned x2 days ago. Patient reports pain with movement of the wrist and some shooting pain from wrist to elbow. He denies trauma to the elbow, head trauma, loss of consciousness, dizziness, palpitations, and history of hypertension, hyperlipidema, coronary artery disease, cerebrovascular accident, or renal disease. PCP: none provided Past Medical History Reviewed: Historical Data, Nursing Documentation, Vital Signs Vital Signs: Last Vital Signs Temp 98.1 F 07/24/18 12:22 Pulse 76 07/24/18 12:22 Resp 18 07/24/18 12:22 BP 128/78 07/24/18 12:22 Pulse Ox 100 07/24/18 12:22 - Medical History PMH: Back Problems, Kidney Stones (RIGHT), Chronic Kidney Disease Denies: CAD, CVA, HTN, Hyperlipidemia - Family History Family History: States: Unknown Family Hx - Home Medications Home Medications: Ambulatory Orders Medication Instructions Recorded Aspirin 325 mg PO DAILY 06/09/17 Ibuprofen [Motrin] 600 mg PO PRN PRN 06/09/17 Naproxen Sodium [Aleve] 220 mg PO PRN PRN 06/09/17 Ondansetron HCl [Zofran] 4 mg PO Q4 PRN 06/09/17 oxyCODONE/Acetaminophen [Percocet 1 tab PO Q4 PRN 06/09/17 5/325 mg Tab] Ibuprofen [Motrin Tab] 600 mg PO Q6 #20 tab 11/25/17 Cyclobenzaprine [Cyclobenzaprine 10 mg PO TID PRN #15 tab 12/24/17 HCl] Naproxen 500 mg PO BID PRN #20 tablet 12/24/17 Ibuprofen [Motrin Tab] 600 mg PO Q6H PRN 5 Days tab 07/24/18 - Allergies Allergies/Adverse Reactions: Allergies Allergy/AdvReac Type Severity Reaction Status Date / Time No Known Allergies Allergy Verified 07/24/18 12:22 Review of Systems ROS Statement: Except As Marked, All Systems Reviewed And Found Negative Cardiovascular: Negative for: Palpitations Musculoskeletal: Positive for: Arm Pain (right wrist pain with shooting pain to right elbow). Negative for: Other (trauma to elbow) Neurological: Negative for: Other (loss of consciousness, dizziness, ) Physical Exam - Reviewed Nursing Documentation Reviewed: Yes Vital Signs Reviewed: Yes - Physical Exam Appears: Negative for: Uncomfortable Cardiovascular/Chest: Positive for: Regular Rate, Rhythm. Negative for: Murmur Respiratory: Positive for: Normal Breath Sounds (clear to auscultation bilaterally) Pulses-Radial (R): 2+ Extremity: Positive for: Normal ROM (with abduction and adduction of right wrist. normal ROM right elbow. ), Tenderness (tenderness upon palpation between second and third posterier aspect of metacarpophalangeal joint or right extremity. Tenderness with passive flexation and mild tenderness with passive extention of right wrist.), Capillary Refill (less than 2 seconds), Other (mild errythema on posterier aspect or right wrist). Negative for: Deformity, Swelling (or lacerations on wrists or elbows. ) Neurologic/Psych: Positive for: Motor/Sensory Deficits (Strength equilateral) - ECG O2 Sat by Pulse Oximetry: 100 (RA) Pulse Ox Interpretation: Normal Medical Decision Making Medical Decision Making: Time: 1324 Initial plan: --X-ray right wrist --X-ray right elbow --ibuprofen 600 mg PO --revaluation 1409 --X-ray right elbow FINDINGS: BONES: Two views of the right elbow were performed for right elbow pain and prior trauma 2 weeks ago. No appreciable acute or healing fracture is noted. No dislocation of the right elbow is noted. Radial head is intact. No periosteal reaction is seen. JOINTS: Normal. No osteoarthritis. SOFT TISSUES: Normal. JOINT EFFUSION: No joint effusion is seen. OTHER FINDINGS: None. IMPRESSION: No appreciable fracture or dislocation of the right elbow. --X-ray right wrist FINDINGS: BONES: Three views of the right wrist were performed for right wrist pain and trauma 2 weeks ago. No fracture is seen. No abnormal carpal bone widening is noted. Navicular bone appears intact. Distal radius and ulna are intact as well as the metacarpals. No lytic process is seen. No periosteal reaction or erosions are noted. JOINTS: Normal. No dislocation. SOFT TISSUES: Normal. OTHER FINDINGS: None. IMPRESSION: No fracture. 1441 Upon provider evaluation patient is medically stable, and requires no further treatment in the ED at this time. Patient will be discharged home. Counseling was provided and all questions were answered regarding diagnosis. There is agreement to discharge plan. Return if symptoms persist or worsen. Scribe Attestation: Documented by Casey Massey, acting as a scribe for Lisa Alfaro PA-C Provider Scribe Attestation: All medical record entries made by the Scribe were at my direction and personally dictated by me. I have reviewed the chart and agree that the record accurately reflects my personal performance of the history, physical exam, medical decision making, and the department course for this patient. I have also personally directed, reviewed, and agree with the discharge instructions and disposition. Disposition - Clinical Impression Clinical Impression: Wrist pain - Patient ED Disposition Is Patient to be Admitted: No - Disposition Referrals: [facility] [Outside] Disposition: Routine/Home Disposition Time: 14:41 Condition: IMPROVED Additional Instructions: Ibuprofen as needed for pain. Return to ER if pain worsens or you develop swelling despite Ibuprofen. Prescriptions: Ibuprofen [Motrin Tab] 600 mg PO Q6H PRN 5 Days tab PRN Reason: Pain, Moderate (4-7) Instructions: Muscle and Bone Pain (DC) Forms: [employer] (South African) Print Language: SPANISH
[2018-07-24 14:51] VITALS: BP 124/72; PULSE 74; RESP 15; TEMP 98.2
[2018-07-24 17:13] VITALS: O2SAT 100
== END 2018-07-24 14:50 | disposition home or self-care (01) ==
LOC: H.ER 12:05
DX: M25.531 Pain in right wrist (principal); M25.521 Pain in right elbow